=== PATIENT | female | born 1945 | race Caucasian/White ===

== ENCOUNTER 2020-02-14 15:21 | Outpatient (CLI) | payer MEDICARE, OTHER, SELFPAY ==
--- NOTE | 2020-02-14 15:29 | XR_ITS ---
WS: [id number] SCREENING DEXA SCAN [id number] CLINICAL INFORMATION: POST MENOPAUSAL COMPARISON: 16,18 FINDINGS: The L1-L4 bone mineral density measures 1.047 g/cm2. This corresponds to a T score score of -1.1 and Z score of 0.8. Left femoral neck bone mineral density measures 1.005 g/cm2. This corresponds to a T score of 0.0 and Z score of 1.7. Right femoral neck bone mineral density measures 0.926 g/cm2. This corresponds to a T score -0.6of an d Z score of 1.1. Mean femoral neck bone mineral density measures 0.965 g/cm2. This corresponds to a T score of -0.3 an d Z score of 1.4. XR/XR DEXA axial skeleton* [id number] IMPRESSION: Osteopenia lumbar spine. Normal bone mineralization in the femoral necks. Patient's FRAX calculated 10 year probability for major osteoporotic fracture i s 9.6 % and osteoporotic hip fracture is 1.7%.
== END 2020-02-14 15:22 | disposition home or self-care (01) ==
LOC: RADWPI 15:27
PROVIDERS: PCP Family Medicine; Visit Provider Family Medicine
DX: Z78.0 Asymptomatic menopausal state (principal); M85.88 Other specified disorders of bone density and structure, other site
CPT/HCPCS: 77080

== ENCOUNTER → 2021-01-21 13:23 | Outpatient (BNVA) | payer MEDICARE, OTHER, SELFPAY | PROVIDERS: PCP Family Medicine; Visit Provider Nurse Practitioner Family | DX: Z20.822 Contact with and (suspected) exposure to COVID-19 (principal); J01.00 Acute maxillary sinusitis, unspecified | CPT/HCPCS: 87635 ==

== ENCOUNTER 2021-06-06 11:57 | Outpatient (CLI) | payer MEDICARE, OTHER, SELFPAY ==
--- NOTE | 2021-06-06 12:17 | MM_ITS ---
WS: [id number] BILATERAL 3D TOMOSYNTHESIS DIGITAL SCREENING MAMMOGRAPHY WITH CAD CLINICAL INFORMATION: SCREENING HISTORY: Screening mammogram. No current complaints. COMPARISON: March 10, 2019 TECHNIQUE: Bilateral CC and MLO views. FINDINGS: The breasts are composed of heterogeneous fibroglandular density tissue, which can limit the detectio n of small underlying mass lesions. Punctate and lucent centered calcifications. Vascular calcificati on. No suspicious mass, asymmetry, calcifications, or architectural distortion. No evidence of malign shira. MM/[place] [id number] IMPRESSION: BI-RADS: 2-Benign FOLLOW UP: 1 Year Follow-up Recommend return to annual screening mammography.
== END 2021-06-06 11:58 | disposition home or self-care (01) ==
PROVIDERS: PCP Family Medicine; Visit Provider Family Medicine
DX: Z12.31 Encounter for screening mammogram for malignant neoplasm of breast (principal)
CPT/HCPCS: 77063; 77067

== ENCOUNTER 2021-07-10 15:02 | Outpatient (CLI) | payer MEDICARE, OTHER, SELFPAY ==
--- NOTE | 2021-07-10 | MR_ITS ---
WS: [id number] MRI BRAIN WITH HIGH-RESOLUTION IMAGING THROUGH THE INTERNAL AUDITORY CANALS WITHOUT AND WITH CONTRAST HISTORY: Sensorineural HEARING LOSS, BILATERAL , TINNITUS, loss of hearing right ear. COMPARISON: None available. TECHNIQUE: Multiplanar, multisequence imaging is performed through the brain. Additional 3 mm imaging performed in multiple planes through the internal auditory canal. Postcontrast imaging with 15 ml's of MultiHance. No acute intracranial hemorrhage, midline shift, edema or mass effect. Moderate T2 and FLAIR signal hyperintensity surrounding the ventricles and subcortical distribution. Abnormal signal is bilateral. Ventricles and extra-axial spaces are normal. No inferior displacement of cerebellar tonsils. Clivus and pituitary gland are normal. Internal and external auditory canals: Unremarkable. Cranial nerves VII and VIII complexes: Unremarkable. No enhancement or mass. Cerebellopontine angles: Normal. Paranasal sinuses: Normal. Mastoid air cells: Normal. Calvarium and scalp: Normal. Visualized [place] [place] and dural venous sinuses demonstrate no abnormality. MR/MR iac's wo/w con* [id number] IMPRESSION: 1. Normal internal auditory canals. No mass or abnormal enhancement. 2. Moderate small vessel ischemic disease within the white matter. No prior la rge infarct or hemorrhage.
== END 2021-07-10 15:03 | disposition home or self-care (01) ==
LOC: RAD 15:13
PROVIDERS: PCP Family Medicine; Visit Provider Specialist
DX: H90.3 Sensorineural hearing loss, bilateral (principal); H93.13 Tinnitus, bilateral
CPT/HCPCS: 70553; A9577

== ENCOUNTER 2021-09-22 09:24 | Emergency (ER) | payer MEDICARE, OTHER, SELFPAY ==
[2021-09-22 09:50] VITALS: BP 137/76; PULSE 78; RESP 16; TEMP 35.9; O2SAT 98; BMI 20.9
[2021-09-22 10:12] LABS: Basophils % 0.5 %; Eosinophils # 0.1 10^3/uL (0.0-0.8); Eosinophils % 1.3 %; Hematocrit 38.2 % (37.0-47.0); Lymphocytes # 1.4 10^3/uL (0.8-4.8); Lymphocytes % 16.6 %; Mean Corpuscular Hemoglobin 29.9 pg (28.0-34.0); Mean Corpuscular Volume 87.8 fl (81-99); Mean Platelet Volume 10.5 fL (7.4-10.4); Monocytes # 0.8 10^3/uL (0.2-0.9); Monocytes % 9.1 %; Neutrophils # 5.93 10^3/uL (1.8-7.7); Nucleated Red Blood Cells % 0 %; Platelet Count 220 10^3/cmm (130-400); Red Blood Count 4.35 10^6/uL (4.1-5.3); Red Cell Distribution Width 12.2 % (12.1-15.1); White Blood Count 8.2 10^3/uL (4.0-10.0)
[2021-09-22 10:28] LABS: Bilirubin Urine Neg (Negative); Blood Urine 3+ (Negative); Glucose Urine UA Norm (Normal); Ketones Urine Negative (Negative); Nitrate Urine Negative (Negative); Protein Urine 2+ (Negative); Specific Gravity, Urine 1.025 (1.005-1.030); Urine Appearance Bloody (CLEAR); Urine Color Red (Yellow); Urobilinogen Urine Norm (Negative); pH Urine 6 (5-7)
[2021-09-22 10:29] LABS: Add Urine Microscopic? YES; Alanine Aminotransferase 15 U/L (0-33); Albumin Level 4.8 g/dL (3.5-5.2); Alkaline Phosphatase 66 IU/L (35-105); Anion Gap 15.3 (5-19); Aspartate Amino Transferase 21 U/L (0-32); Blood Urea Nitrogen 17 mg/dL (8-23); Carbon Dioxide 25 mmol/L (22-29); Chloride 101 mmol/L (98-107); Globulin 2.4 g/dL (1.3-4.6); Glucose 90 mg/dL (65-115); Leukocyte Esterase Urine 1+ (Negative); Osmolality Calculated 285 mOsm/kg (285-295); Potassium 4.3 mmol/L (3.5-5.1); Sodium 137 mmol/L (136-145); Total Bilirubin 0.3 mg/dL (0.15-1.2); Total Protein 7.2 g/dL (6.6-8.7)
[2021-09-22 10:32] LABS: Bacteria Urine 2+ /hpf; RBC Urine TOO NUMEROUS TO CNT /hpf (0-2); Squamous Epithelial Cell Urine 0-4 /hpf (0-5); WBC Urine >100 /hpf (0-5)
[2021-09-22 10:34] LABS: Add Urine Culture? Yes
--- NOTE | 2021-09-22 11:20 | W.ED.ABDPA2 ---
HPI - Abdominal Pain General: Chief Complaint: Abdominal Pain Stated Complaint: Blood in urine Time Seen by Provider: 09/22/21 11:19 History of Present Illness: Ms. Vences is a 76-year-old lady without significant past medical history presents to the emergency department due to hematuria. She reports approximately 3-day history of symptoms. Initially she had a few episodes of watery diarrhea however felt improved yesterday and symptoms returned today. She is noted blood in urine as well as pressure in her pelvic region and suprapubic region. Denies fevers, chills, nausea, vomiting. Overall intensity symptoms is moderate. Course has persisted. Denies frequent episodes of similar in the past. No other specific changes in health, exacerbating, or alleviating factors identified. Onset (ago): day(s) Location: Suprapubic Severity: moderate Quality: fullness and other Associated Symptoms: Reports diarrhea and hematuria Review of Systems General: Reports: 10 or more systems reviewed and unremarkable except in HPI and below GI: Reports: diarrhea : Reports: hematuria PFSH ED PFSH: Medical History Hyperlipidemia Surgical History No significant past surgical history Family History Denies family history of Clotting disorder Bleeding disorder Social History Smoking and tobacco status: never smoked Physical Exam Const: COMMON NORMALS: alert GENERAL APPEARANCE: cooperative and well developed HENMT: COMMON NORMALS: normocephalic and atraumatic HEAD & SCALP: normocephalic and atraumatic Eye: COMMON NORMALS: conjunctivae normal CONJUNCTIVA: Yes conjunctivae normal SCLERA: sclerae normal Neck/C-Spine: COMMON NORMALS: supple GENERAL: Yes trachea midline Resp: COMMON NORMALS: normal respiratory effort and clear to auscultation bilaterally EFFORT & INSPECTION: Yes able to speak in complete sentences AUSCULTATION: clear to auscultation bilaterally Cardio: COMMON NORMALS: regular rate and regular rhythm RATE: regular rate RHYTHM: regular rhythm GI: COMMON NORMALS: Soft to palpation PALPATION: Yes Soft to palpation and No Tenderness to palpation present (GI) Extremity: GENERAL: Yes normal exam except as noted and No edema Neuro: COMMON NORMALS: moves all extremities SENSORIUM/ORIENTATION: Yes alert and No Orientation impaired Psych: COMMON NORMALS: mental status grossly normal and Normal thought process present THOUGHT PROCESS: Normal thought process present Course ED course: - Patient was seen and evaluated by me at bedside - Patient placed on cardiac monitors, IV access obtained - Initial evaluation notable for exam as above - Labs personally interpreted by me - Labs notable for no leukocytosis, normal hemoglobin. Metabolic panel unremarkable. Urinalysis with evidence of urinary tract infection - Imaging notable for CT abdomen pelvis notable for bladder wall thickening with adjacent edema, additional fat lobule stranding in the posterior left pelvis which may represent epiploic appendagitis. - Discussed incidental finding of pulmonary nodule with the patient, no history of smoking. - Discussed mildly dilated common bile duct. Patient does not have right upper quadrant tenderness or history consistent with biliary colic. Additionally transaminases are normal. I feel that this is a incidental finding however did offer ultrasound which the patient is comfortable foregoing in favor of outpatient follow-up and strict return precautions regarding possible biliary pathology - Upon serial reexamination after treatment the patient was improved - Based on patient history, evaluation, and testing as interpreted the most likely cause of the patient's condition is urinary tract infection. First dose of antibiotic given - The results of ED evaluation were discussed with the patient including prescriptions and/or symptomatic cares (if applicable) including appropriate and responsible use, followup plan, and return precautions. The patient verbalized understanding and felt safe for discharge. - Patient discharged in satisfactory condition. Note: Click bubbles or prepopulated hatch in note writing are used for assistance with data collection and billing and are inherently more limited than narrative and other text portions of this note. Please use narrative for additional clinical history and defer to narrative/free test for any case of contradictory information. If information appears in only free text or click bubble it should be considered present or absent as reported. Please contact note justowriter operator for clarifications of clinical information or contradictory information. MDM is a brief summary, contradictory or erroneous seeming information should be clarified and full note should be reviewed. Vital Signs: Vital signs: Vital Signs Temperature 96.7 F L 09/22/21 09:50 Pulse Rate 78 09/22/21 09:50 Respiratory Rate 16 09/22/21 09:50 Blood Pressure 137/76 09/22/21 09:50 Pulse Oximetry 98 09/22/21 09:50 MDM - Abdominal Pain Medical Decision Making 76-year-old lady presenting to the emergency department with abdominal pain. Most likely etiology is cystitis with hematuria. Incidental findings on CT scan discussed with the patient. Patient is nontoxic in appearance and appears satisfactory for outpatient management with return precautions given. Medical Records I reviewed the patient's medical records. Lab Data I reviewed the patient's lab results. : 09/22/21 09:42 09/22/21 09:42 Labs/Radiology: Radiology Impressions Abdomen/Pelvis CT 09/22/21 11:33 IMPRESSION: 1. The bladder wall is thickened with adjacent edema. Correlate with urinalysis to assess for cystitis. 2. There is stranding surrounding a fat lobule in the posterior left pelvis that may reflect epiploic appendagitis. 3. The common bile duct is mildly dilated measuring up to 6.4 mm. No definite obstructive stone or lesion is seen. Recommend ultrasound to further assess. 4. Colonic diverticulosis without evidence of acute diverticulitis. 5. A solid pulmonary nodule in the left lower lobe measures 3 mm. As per Fleischner Society 2017 guidelines for follow-up and management of pulmonary nodules: For patients at low risk (minimal or absent history of smoking and of other known risk factors), no routine follow-up. For patient at high risk (history of smoking or of other known risk factors), recommend optional CT at 12 months. 6. Very small pericardial effusion. Laboratory Results WBC 8.2 10^3/uL (4.0-10.0) 09/22/21 09:42 RBC 4.35 10^6/uL (4.1-5.3) 09/22/21 09:42 Hgb 13.0 g/dL (11.5-15.3) 09/22/21 09:42 Hct 38.2 % (37.0-47.0) 09/22/21 09:42 MCV 87.8 fl (81-99) 09/22/21 09:42 MCH 29.9 pg (28.0-34.0) 09/22/21 09:42 MCHC 34.0 g/dL (30.0-36.0) 09/22/21 09:42 RDW 12.2 % (12.1-15.1) 09/22/21 09:42 Plt Count 220 10^3/cmm (130-400) 09/22/21 09:42 MPV 10.5 fL (7.4-10.4) H 09/22/21 09:42 Neut % (Auto) 72.0 % 09/22/21 09:42 Lymph % (Auto) 16.6 % 09/22/21 09:42 [place] % (Auto) 9.1 % 09/22/21 09:42 Eos % (Auto) 1.3 % 09/22/21 09:42 Baso % (Auto) 0.5 % 09/22/21 09:42 Neut # (Auto) 5.93 10^3/uL (1.8-7.7) 09/22/21 09:42 Lymph # (Auto) 1.4 10^3/uL (0.8-4.8) 09/22/21 09:42 [place] # (Auto) 0.8 10^3/uL (0.2-0.9) 09/22/21 09:42 Eos # (Auto) 0.1 10^3/uL (0.0-0.8) 09/22/21 09:42 Baso # (Auto) 0.0 10^3/uL (0.0-0.1) 09/22/21 09:42 Nucleated RBC % (auto) 0 % 09/22/21 09:42 Nucleated RBCs # 0.0 /100WBC 09/22/21 09:42 Sodium 137 mmol/L (136-145) 09/22/21 09:42 Potassium 4.3 mmol/L (3.5-5.1) 09/22/21 09:42 Chloride 101 mmol/L (98-107) 09/22/21 09:42 Carbon Dioxide 25 mmol/L (22-29) 09/22/21 09:42 Anion Gap 15.3 (5-19) 09/22/21 09:42 BUN 17 mg/dL (8-23) 09/22/21 09:42 Creatinine 0.7 mg/dL (0.5-0.9) 09/22/21 09:42 GFR Calculation Not Reportable 09/22/21 09:42 Glucose 90 mg/dL (65-115) 09/22/21 09:42 Calculated Osmolality 285 mOsm/kg (285-295) 07/03/22 09:42 Calcium 9.0 mg/dL (8.5-10.5) 09/22/21 09:42 Total Bilirubin 0.3 mg/dL (0.15-1.2) 09/22/21 09:42 AST 21 U/L (0-32) 09/22/21 09:42 ALT 15 U/L (0-33) 09/22/21 09:42 Alkaline Phosphatase 66 IU/L (35-105) 09/22/21 09:42 Total Protein 7.2 g/dL (6.6-8.7) 09/22/21 09:42 Albumin 4.8 g/dL (3.5-5.2) 09/22/21 09:42 Globulin 2.4 g/dL (1.3-4.6) 09/22/21 09:42 Urine Color Red (Yellow) 09/22/21 09:42 Urine Appearance Bloody (CLEAR) A 09/22/21 09:42 Urine pH 6 (5-7) 09/22/21 09:42 Ur Specific [place] 1.025 (1.005-1.030) 09/22/21 09:42 Urine Protein 2+ (Negative) H 09/22/21 09:42 Urine Glucose (UA) Norm (Normal) 09/22/21 09:42 Urine Ketones Negative (Negative) 09/22/21 09:42 Urine Blood 3+ (Negative) H 09/22/21 09:42 Urine Nitrate Negative (Negative) 09/22/21 09:42 Urine Bilirubin Neg (Negative) 09/22/21 09:42 Urine Urobilinogen Norm mg/dL (Negative) 09/22/21 09:42 Ur Leukocyte Esterase 1+ (Negative) H 09/22/21 09:42 Urine RBC Too numerous to cnt /hpf (0-2) H 09/22/21 09:42 Urine WBC >100 /hpf (0-5) H 09/22/21 09:42 Ur Squamous Epith Cells 0-4 /hpf (0-5) H 09/22/21 09:42 Amorphous Sediment Not Reportable 09/22/21 09:42 Urine Bacteria 2+ /hpf (NONE) H 09/22/21 09:42 Discharge Plan Discharge Patient Disposition: Home Clinical Impression: Acute UTI, Hematuria Condition: Stable Prescriptions: No Action doxycycline hyclate 100 mg capsule 100 mg PO BID 10 Days Qty: 20 0RF Discharge Orders: Discharge ED (Routine); Ordered 09/22/21 Ordered By: Pritesh Pretty Referrals: Edwin Palumbo MD [Primary Care Provider] - Discharge Diet: Usual diet Discharge Activity: Resume usual activity Patient Instructions: Cephalexin (By mouth), Urinary Tract Infection in Women (ED), Hematuria (ED) Activity Restrictions/Additional Instructions: Thank you for visiting the emergency department. You were seen and evaluated for blood in urine and abdominal discomfort. The most likely cause of the symptoms is urinary tract infection. You will be treated with antibiotics. I would expect improvement in the next few days. Please complete the course of antibiotics. Please follow-up with your primary care provider. I recommend repeat urinalysis after completion of course of treatment to ensure that hematuria has resolved as there are other causes of hematuria that may require further evaluation if it persists including urology referral. As discussed you do have mild dilation of the common bile duct, in the absence of right upper quadrant pain and in the context of normal renal liver function testing on laboratory studies I feel that this is a incidental finding. Certainly if you begin to have right upper quadrant pain or any jaundice please return immediately to the emergency department. Please return for significant fevers, inability tolerate oral intake, uncontrolled pain, or anything else that you are concerned about a feel needs emergency department evaluation. 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
--- NOTE | 2021-09-22 11:33 | CTR_ITS ---
PROCEDURE INFORMATION: Exam: CT Abdomen And Pelvis Without Contrast Exam date and time: 09/22/2021 12:06 PM Age: 76 years old Clinical indication: Bloating, hematuria and pelvic pressure. TECHNIQUE: Imaging protocol: Computed tomography of the abdomen and pelvis without contrast. Radiation optimization: All CT scans at this facility use at least one of these dose optimization techniques: automated exposure control; mA and/or kV adjustment per patient size (includes targeted exams where dose is matched to clinical indication); or iterative reconstruction. COMPARISON: No relevant prior studies available. RADIATION DOSE METRICS: Total DLP (mGy-cm): 598.46 FINDINGS: Lungs: Mild scarring at the lung bases. A solid pulmonary nodule in the left lower lobe measures 3 mm (image 10). Very small pericardial effusion. Small hiatal hernia. Liver: The liver is unremarkable. Gallbladder and bile ducts: The gallbladder is unremarkable. The common bile duct is mildly dilated measuring up to 6.4 mm. No definite obstructive stone or lesion is seen. Pancreas: The pancreas is unremarkable. Spleen: The spleen is unremarkable. Adrenal glands: The adrenal glands are unremarkable. Kidneys and ureters: The kidneys are unremarkable. Stomach and bowel: The stomach and small bowel are unremarkable. Colonic diverticulosis without evidence of acute diverticulitis. There is stranding surrounding a fat lobule in the posterior left pelvis that may reflect epiploic appendagitis. Appendix: The appendix is unremarkable. Intraperitoneal space: No free intraperitoneal air is seen. Vasculature: No abdominal aortic aneurysm. Lymph nodes: No retroperitoneal lymphadenopathy. Urinary bladder: The bladder wall is thickened with adjacent edema. Correlate with urinalysis to assess for cystitis. Reproductive: Probable involuted uterine fibroids. Bones/joints: No acute fracture is seen. Soft tissues: Small fat containing umbilical hernia. CT/CT kidney stone [id number] IMPRESSION: 1. The bladder wall is thickened with adjacent edema. Correlate with urinalysis to assess for cystitis. 2. There is stranding surrounding a fat lobule in the posterior left pelvis that may reflect epiploic appendagitis. 3. The common bile duct is mildly dilated measuring up to 6.4 mm. No definite obstructive stone or lesion is seen. Recommend ultrasound to further assess. 4. Colonic diverticulosis without evidence of acute diverticulitis. 5. A solid pulmonary nodule in the left lower lobe measures 3 mm. As per Fleischner Society 2017 guidelines for follow-up and management of pulmonary nodules: For patients at low risk (minimal or absent history of smoking and of other known risk factors), no routine follow-up. For patient at high risk (history of smoking or of other known risk factors), recommend optional CT at 12 months. 6. Very small pericardial effusion.
[2021-09-22] MEDS: cephALEXin 500 mg Capsule PO (13:06)
== END 2021-09-22 13:16 | disposition home or self-care (01) ==
PROVIDERS: Emergency Medicine; Emergency Provider Emergency Medicine; PCP Family Medicine
DX: N39.0 Urinary tract infection, site not specified (principal); R31.9 Hematuria, unspecified; E78.5 Hyperlipidemia, unspecified
CPT/HCPCS: 36415; 74176; 80053; 81001; 85025; 87077; 87086; 87186; 99283

== ENCOUNTER → 2022-04-08 15:32 | Outpatient (BNVA) | payer MEDICARE, OTHER, SELFPAY | PROVIDERS: PCP Family Medicine; Visit Provider Nurse Practitioner Family | DX: S52.501A Unspecified fracture of the lower end of right radius, initial encounter for closed fracture (principal); W19.XXXA Unspecified fall, initial encounter | CPT/HCPCS: 73110 ==

== ENCOUNTER → 2022-04-09 15:18 | Outpatient (BNVA) | payer MEDICARE, OTHER, SELFPAY | PROVIDERS: PCP Family Medicine; Referring Provider Nurse Practitioner Family; Visit Provider Specialist | DX: S52.571A Other intraarticular fracture of lower end of right radius, initial encounter for closed fracture (principal); V19.3XXA Pedal cyclist (driver) (passenger) injured in unspecified nontraffic accident, initial encounter | CPT/HCPCS: 73110 ==

== ENCOUNTER 2022-04-09 16:47 | Outpatient (CLI) | payer MEDICARE, OTHER, SELFPAY | END 2022-04-09 16:48 | disposition home or self-care (01) | LOC: SPT 16:48 | PROVIDERS: PCP Family Medicine; Visit Provider Specialist | DX: Z46.89 Encounter for fitting and adjustment of other specified devices (principal); S52.591D Other fractures of lower end of right radius, subsequent encounter for closed fracture with routine healing; X58.XXXD Exposure to other specified factors, subsequent encounter | CPT/HCPCS: 25600; 97760; 99203; L3982 ==

== ENCOUNTER → 2022-05-05 07:53 | Outpatient (BNVA) | payer MEDICARE, OTHER, SELFPAY | PROVIDERS: PCP Family Medicine; Visit Provider Specialist | DX: S52.571D Other intraarticular fracture of lower end of right radius, subsequent encounter for closed fracture with routine healing (principal); V19.3XXD Pedal cyclist (driver) (passenger) injured in unspecified nontraffic accident, subsequent encounter | CPT/HCPCS: 73110; 99024 ==

== ENCOUNTER → 2022-05-26 14:25 | Outpatient (BNVA) | payer MEDICARE, OTHER, SELFPAY | PROVIDERS: PCP Family Medicine; Visit Provider Specialist | DX: S52.501D Unspecified fracture of the lower end of right radius, subsequent encounter for closed fracture with routine healing (principal); V19.3XXD Pedal cyclist (driver) (passenger) injured in unspecified nontraffic accident, subsequent encounter | CPT/HCPCS: 73110; 99024 ==

== ENCOUNTER 2022-06-04 06:00 | Outpatient (RCR) | payer MEDICARE, OTHER, SELFPAY | END 2022-06-20 23:59 | disposition home or self-care (01) | LOC: TPT 06:00 | PROVIDERS: PCP Family Medicine; Visit Provider Specialist | DX: S52.501A Unspecified fracture of the lower end of right radius, initial encounter for closed fracture (principal); X58.XXXA Exposure to other specified factors, initial encounter | CPT/HCPCS: 97110; 97140; 97161 ==

== ENCOUNTER 2022-06-09 13:53 | Outpatient (CLI) | payer MEDICARE, OTHER, SELFPAY ==
--- NOTE | 2022-06-09 13:59 | MM_ITS ---
WS: [id number] BILATERAL 3D TOMOSYNTHESIS DIGITAL SCREENING MAMMOGRAPHY WITH CAD CLINICAL INFORMATION: SCREENING HISTORY: Screening mammogram. No current complaints. COMPARISON: June 06, 2021 TECHNIQUE: Bilateral CC and MLO views. FINDINGS: The breasts are composed of heterogeneous fibroglandular density tissue, which can limit the detectio n of small underlying mass lesions. No suspicious mass, asymmetry, calcifications, or architectural d istortion. No evidence of malignancy. Punctate and lucent centered calcifications. Vascular calcifica tion. MM/[place] [id number] IMPRESSION: BI-RADS: 2-Benign FOLLOW UP: 1 Year Follow-up Recommend return to annual screening mammography.
== END 2022-06-09 13:54 | disposition home or self-care (01) ==
LOC: RAD 13:54
PROVIDERS: PCP Family Medicine; Visit Provider Family Medicine
DX: Z12.31 Encounter for screening mammogram for malignant neoplasm of breast (principal)
CPT/HCPCS: 77063; 77067

== ENCOUNTER 2022-06-21 06:00 | Outpatient (RCR) | payer MEDICARE, OTHER, SELFPAY | END 2022-07-10 23:59 | disposition home or self-care (01) | LOC: TPT 06:00 | PROVIDERS: PCP Family Medicine; Visit Provider Specialist | DX: S52.501D Unspecified fracture of the lower end of right radius, subsequent encounter for closed fracture with routine healing (principal); X58.XXXD Exposure to other specified factors, subsequent encounter | CPT/HCPCS: 97110; 97140 ==

== ENCOUNTER → 2024-03-01 14:05 | Outpatient (BNVA) | payer MEDICARE, OTHER, SELFPAY | PROVIDERS: PCP Family Medicine; Visit Provider Nurse Practitioner Family | DX: R05.9 Cough, unspecified (principal) | CPT/HCPCS: 71046 ==

== ENCOUNTER 2024-04-23 06:30 | Outpatient (RCR) | payer MEDICARE, OTHER, SELFPAY | END 2024-05-20 23:59 | disposition home or self-care (01) | LOC: TPT 06:30 | PROVIDERS: PCP Family Medicine; Visit Provider Family Medicine | DX: M46.86 Other specified inflammatory spondylopathies, lumbar region (principal) | CPT/HCPCS: 97110; 97162 ==

== ENCOUNTER 2024-05-21 06:00 | Outpatient (RCR) | payer MEDICARE, OTHER, SELFPAY | END 2024-06-20 23:59 | disposition home or self-care (01) | LOC: TPT 06:00 | PROVIDERS: PCP Family Medicine; Visit Provider Family Medicine | DX: M46.86 Other specified inflammatory spondylopathies, lumbar region (principal) | CPT/HCPCS: 97110 ==